=== PATIENT | female | born 1940 | race Caucasian/White ===

== ENCOUNTER 2018-12-11 08:20 | Emergency (ER) | payer MEDICARE ==
[~2018-12-11] VITALS: Ht 160 cm; Wt 64.4 kg
[~2018-12-11 08:20] MED LIST: ASPI81TA31 PO
[2018-12-11] MEDS ORDERED: VALS160T2 PO (08:54)
[2018-12-11] MEDS ORDERED: SULF500T8 PO (08:54)
[2018-12-11 09:07] LABS: *BILIRUBIN,URIN NEGATIVE (NEGATIVE); *BLOOD, URINE 3+ (NEGATIVE); *CLARITY,URINE CLOUDY (CLEAR); *COLOR,URINE YELLOW (YELLOW); *KETONES,URINE NEGATIVE (NEGATIVE); *UROBILINOGEN,URINE 0.2 E.U./dl (NORMAL); LEUKOCYTE ESTERASE ,URINE 2+ (NEGATIVE); NITRITE, URINE POSITIVE (NEGATIVE); UGLUCOSE NEGATIVE (NEGATIVE)
[2018-12-11 09:27] LABS: BACTERIA,URINE MODERATE /HPF (NONE SEEN); SQUAMOUS EPITHELIAL CELL,UR NONE SEEN /HPF (NONE SEEN)
[2018-12-11 09:28] LABS: WBC,URINE TNTC /HPF (0-3)
--- NOTE | 2018-12-11 09:28 | NUR ---
PATIENT WAS SEEN BY . URINE SENT TO LAB.
--- NOTE | 2018-12-11 10:13 | NUR ---
DC, RX AND FOLLOW UP INSTRUCTIONS GIVEN AND EXPLAINED TO PATIENT WHO STATES SHE UNDERSTANDS ALL INSTRUCTIONS.
== END 2018-12-11 10:14 | disposition home or self-care (01) ==
LOC: ER 08:20
DX: N39.0 Urinary tract infection, site not specified (principal); I10 Essential (primary) hypertension; Z79.82 Long term (current) use of aspirin; Z79.899 Other long term (current) drug therapy
CPT/HCPCS: 87077; 87086; A4663